=== PATIENT | female | born 2000 | race Caucasian/White ===

== ENCOUNTER 2018-04-18 16:45 | Emergency (ER) | payer BC ==
[2018-04-18 17:54] VITALS: BP 126/74
--- NOTE | 2018-04-18 18:21 | UC ---
Complaint Female HPI - HPI Summary HPI Summary: Started with UTI symtoms 6 days ago. Given 2 days worth of antibiotics. Some of the urinary symptoms resolved but still having dysuria. - History Of Current Complaint Chief Complaint: UCGU Stated Complaint: URINARY Time Seen by Provider: 04/18/18 18:09 Hx Obtained From: Patient Hx Last Menstrual Period: IUD ?: No Onset/Duration: Sudden Onset, Lasting Days - 7, Still Present Timing: Intermittent Severity Currently: Moderate Pain Intensity: 5 Character: Burning Aggravating Factor(s): Urination Associated Signs And Symptoms: Positive: Back Pain - lower lateral back pain., Vaginal Bleeding/Discharge - just started bleeding today.. Negative: Nausea, Vomiting(# Of Episodes =), Genital Swelling, Genital Blisters - Risk Factors Ectopic Risk Factor: IUD Use - Allergies/Home Medications Allergies/Adverse Reactions: Allergies Allergy/AdvReac Type Severity Reaction Status Date / Time No Known Allergies Allergy Verified 04/18/18 17:55 Home Medications: Home Medications Iud 1 each 04/18/18 [History] Methenamine/Sodium Salicylate [Cystex Plus Tablet] 1 each PO DAILY 04/18/18 [ History Confirmed 04/18/18] PMH/Surg Hx/FS Hx/Imm Hx Previously Healthy: Yes - Surgical History Surgical History: Yes Surgery Procedure, Year, and Place: TONSILLECTOMY. RIGHT LABRAL REPAIR - Family History Known Family History: Negative: Diabetes - Social History Occupation: Student Lives: Dormitory/Roommates Alcohol Use: Weekly Substance Use Type: None Smoking Status (MU): Never Smoked Tobacco Review of Systems Genitourinary: Dysuria Musculoskeletal: Myalgia - low back Is Patient Immunocompromised?: No All Other Systems Reviewed And Are Negative: Yes Physical Exam Triage Information Reviewed: Yes Appearance: Well-Appearing, No Pain Distress, Well-Nourished Vital Signs: Initial Vital Signs Temp 98.4 F 04/18/18 17:48 Pulse 82 04/18/18 17:48 Resp 14 04/18/18 17:48 BP 126/74 04/18/18 17:48 Pulse Ox 100 04/18/18 17:48 Vital Signs Reviewed: Yes Eyes: Positive: Conjunctiva Clear Neck exam: Normal Respiratory Exam: Normal Cardiovascular Exam: Normal Abdomen Description: Positive: Nontender, No Organomegaly, Soft. Negative: CVA Tenderness (R), CVA Tenderness (L), McBurney's Point Tenderness, Peritoneal Signs Pelvic Exam: Positive: External Exam Normal Musculoskeletal: Positive: Strength Intact, ROM Intact, Other: - tender bilateral lower back lateral muscles. Neurological Exam: Normal Psychological Exam: Normal Skin Exam: Normal Complaint Female Dx - Differential Dx/Diagnosis Differential Diagnosis/HQI/PQRI: Ectopic, Pelvic Inflammatory Disease, Sexually Transmitted Disease, Urinary Tract Infection Provider Diagnoses: Dysuria. Low back pain Discharge - Sign-Out/Discharge Documenting (check all that apply): Patient Departure All imaging exams completed and their final reports reviewed: No Studies - Discharge Plan Condition: Stable Disposition: HOME Prescriptions: Azithromycin TAB* [Zithromax TAB (Z-ESTHER) 250 mg #6 tabs] 4 tab PO ONCE #4 tab Patient Education Materials: Dysuria (ED), Low Back Strain (ED), Azithromycin ( By mouth) Referrals: No Primary Care Phys,NOPCP [Primary Care Provider] - - Billing Disposition and Condition Condition: STABLE Disposition: Home
== END 2018-04-18 18:41 | disposition home or self-care (01) ==
LOC: UCCORT 16:45
DX: R30.0 Dysuria (principal); M54.5 Low back pain
CPT/HCPCS: 81003; 84702; 87086; 87480; 87491; 87510; 87591; 87660; 99202; G0463